=== PATIENT | female | born 2000 | race Caucasian/White ===

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

== ENCOUNTER 2021-01-24 15:56 | Emergency (ER) | payer OTHER ==
[~2021-01-24] VITALS: Ht 160 cm; Wt 47.0 kg
[2021-01-24] MEDS ORDERED: METO-293 MT (17:59)
[2021-01-24] MEDS ORDERED: IBUP-2028 MT (17:59)
[2021-01-24] MEDS ORDERED: IBUPROFEN 400MG TABLET PO ONE (18:00)
[2021-01-24] MEDS ORDERED: METOCLOPRAMIDE HCL 10MG TABLET PO ONE (18:00)
[2021-01-24 18:18] VITALS: BP 119/80
== END 2021-01-24 18:20 | disposition home or self-care (01) ==
LOC: ER 15:56
DX: G44.209 Tension-type headache, unspecified, not intractable (principal); F41.9 Anxiety disorder, unspecified
CPT/HCPCS: 93005; 99283; J8597